=== PATIENT | female | born 1935 | race Caucasian/White ===

== ENCOUNTER 2021-06-29 12:09 | Inpatient (IN) | payer MEDICARE, BC ==
[2021-06-29 13:02] LABS: #Monocytes 0.3 10x3/uL (0.0-1.1); #Neutrophils 6.2 10x3/uL (1.5-8.4); %Basophils 0.1 % (0.0-2.0); %Lymphocytes 17.1 % (18.0-47.0); %Monocytes 4.3 % (0.0-10.0); %Neutrophils 77.5 % (40.0-75.0); Hemoglobin 9.9 g/dL (12.0-15.5); Mean Corpuscular Hemoglobin 31.7 pg (27.0-33.0); Mean Corpuscular Volume 90.7 fl (81.6-98.3); Mean Platelet Volume 11.5 fl (7.4-10.4); Platelet Count 203 10x3/uL (150-450); RBC Distribution Width 12.1 % (11.5-14.5); Red Blood Cell (RBC) Count 3.12 10x6/uL (3.90-5.03); White Blood Cell (WBC) Count 7.9 10x3/uL (3.5-10.5)
[2021-06-29 13:16] LABS: ALT (SGPT) 8 U/L (8-55); AST (SGOT) 16 U/L (5-34); Albumin 4.1 g/dL (3.4-4.8); Alkaline Phosphatase 47 U/L (40-110); Anion Gap 19 mmol/L (10-20); BUN (Urea Nitrogen) 52 mg/dL (9.8-20.1); Bilirubin, Total 0.8 mg/dL (0.2-1.2); Calc. Creatinine Clearance 0 mL/min (70-130); Calcium 9.3 mg/dL (7.8-10.44); Carbon Dioxide 22 mmol/L (23-31); Chloride 103 mmol/L (98-107); Globulin 2.6 g/dL (2.4-3.5); Glucose 150 mg/dL (83-110); Magnesium 1.9 mg/dL (1.6-2.6); Potassium 4.3 mmol/L (3.5-5.1); Protein, Total 6.7 g/dL (5.8-8.1); Sodium 140 mmol/L (136-145)
[2021-06-29 14:24] LABS: Bilirubin Neg (Negative); Blood, Urine Negative (Negative); Clarity Clear (Clear); Glucose, Urine (Dipstick) Normal (Negative); Ketone, Urine Negative (Negative); Leukocyte Negative (Negative); Nitrite Negative (Negative); Protein, Urine (Dipstick) Negative (Neg-Trace); Urobilinogen Normal mg/dL (Less than 2)
[2021-06-29] MEDS ORDERED: Pantoprazole 40 MG VIAL ONE (14:36)
[2021-06-29] MEDS ORDERED: Acetaminophen 650 MG Suppository PR PRN (15:59)
[2021-06-29] MEDS ORDERED: Ondansetron PF 4 MG/2 ML Vial IVP PRN (15:59)
[2021-06-29] MEDS ORDERED: Ondansetron ODT 4 MG TAB PO PRN (15:59)
[2021-06-29] MEDS ORDERED: Acetaminophen 325 MG TAB PO PRN (15:59)
[2021-06-29] MEDS ORDERED: Sodium Chloride 0.9% 1,000 ML IV SCH (16:00)
[2021-06-29 16:16] LABS: Hemoglobin 8.4 g/dL (12.0-15.5)
[2021-06-29 19:26] VITALS: BMI 28.9
[2021-06-29] MEDS: Pantoprazole 40 MG VIAL IVP SCH (21:03)
[2021-06-29 21:54] LABS: Hemoglobin 7.6 g/dL (12.0-15.5)
[2021-06-29 22:23] LABS: SARS-CoV-2 NAA Rapid Test Not Detected (NotDetected)
[2021-06-30] MEDS: Sodium Chloride 0.9% 1,000 ML IV SCH ×2 (05:02→17:52)
[2021-06-30 05:19] LABS: #Monocytes 1.4 10x3/uL (0.0-1.1); #Neutrophils 4.6 10x3/uL (1.5-8.4); %Basophils 0.2 % (0.0-2.0); %Eosinophils 0.1 % (0.0-6.0); %Lymphocytes 30.7 % (18.0-47.0); %Monocytes 15.9 % (0.0-10.0); %Neutrophils 52.3 % (40.0-75.0); Mean Corpuscular Hemoglobin 31.3 pg (27.0-33.0); Mean Corpuscular Volume 94.6 fl (81.6-98.3); Mean Platelet Volume 11.8 fl (7.4-10.4); Platelet Count 160 10x3/uL (150-450); RBC Distribution Width 12.4 % (11.5-14.5); Red Blood Cell (RBC) Count 2.24 10x6/uL (3.90-5.03); White Blood Cell (WBC) Count 8.7 10x3/uL (3.5-10.5)
[2021-06-30 05:27] LABS: Manual Diff?? YES
[2021-06-30 05:44] LABS: Glucose 91 mg/dL (83-110)
[2021-06-30 05:46] LABS: Anion Gap 16 mmol/L (10-20); BUN (Urea Nitrogen) 26 mg/dL (9.8-20.1); Calc. Creatinine Clearance 61 mL/min (70-130); Calcium 7.9 mg/dL (7.8-10.44); Carbon Dioxide 22 mmol/L (23-31); Chloride 109 mmol/L (98-107); Potassium 3.4 mmol/L (3.5-5.1); Sodium 144 mmol/L (136-145)
[2021-06-30 06:25] LABS: Band 9 % (5-11); Lymphocytes 30 % (21-51); Monocytes 13 % (0-10); Neutrophil 48 % (42-75); Platelet Morphology Comment Appears Adequate
[2021-06-30] MEDS: Pantoprazole 40 MG VIAL IVP SCH ×2 (08:20→20:45)
[2021-06-30 10:22] LABS: Hemoglobin 7.6 g/dL (12.0-15.5)
[2021-06-30] MEDS ORDERED: PROPOFOL 20 ML ONE (10:50)
[2021-06-30 16:03] LABS: Hemoglobin 8.3 g/dL (12.0-15.5)
[2021-06-30 22:22] LABS: Hemoglobin 8.1 g/dL (12.0-15.5)
[2021-07-01 05:01] LABS: Anion Gap 13 mmol/L (10-20); BUN (Urea Nitrogen) 10 mg/dL (9.8-20.1); Calc. Creatinine Clearance 63 mL/min (70-130); Calcium 8.1 mg/dL (7.8-10.44); Carbon Dioxide 25 mmol/L (23-31); Chloride 108 mmol/L (98-107); Glucose 113 mg/dL (83-110); Potassium 3.1 mmol/L (3.5-5.1); Sodium 143 mmol/L (136-145)
[2021-07-01 05:27] LABS: Mean Corpuscular Hemoglobin 31.3 pg (27.0-33.0); Mean Corpuscular Volume 89.2 fl (81.6-98.3); Mean Platelet Volume 11.6 fl (7.4-10.4); Platelet Count 173 10x3/uL (150-450); RBC Distribution Width 14.6 % (11.5-14.5); Red Blood Cell (RBC) Count 2.88 10x6/uL (3.90-5.03); White Blood Cell (WBC) Count 7.9 10x3/uL (3.5-10.5)
[2021-07-01 06:14] LABS: Anisocytosis SLIGHT = 6-15 cells (100X) (0-5/hpf); MDiff Complete? YES; Platelet Morphology Comment Appears Adequate
[2021-07-01 06:16] LABS: Lymphocytes 16 % (21-51); Monocytes 18 % (0-10); Neutrophil 64 % (42-75); Reactive Lymphocytes 2 % (0-10)
[2021-07-01] MEDS: Sodium Chloride 0.9% 1,000 ML IV SCH (06:17)
[2021-07-01] MEDS ORDERED: Electrolyte Replacement Protocol 1 EACH FS SCH (07:30)
[2021-07-01] MEDS: Pantoprazole 40 MG VIAL IVP SCH (08:20)
[2021-07-01 08:49] VITALS: TEMP 97.6
[2021-07-01] MEDS ORDERED: Ramipril 5 MG CAP PO SCH (09:00)
[2021-07-01] MEDS ORDERED: Metoprolol Tartrate 50 MG TAB PO SCH (09:00)
[2021-07-01] MEDS ORDERED: Potassium Chloride 20 MEQ TAB PO SCH (12:00)
[2021-07-01] MEDS ORDERED: Magnesium 2 GM/50 ML(in water) 2 GM in Premix Bag 1 BAG IVPB SCH (12:00)
[2021-07-01 13:33] VITALS: BP 139/62
== END 2021-07-01 14:18 | disposition home or self-care (01) | DRG 378 ==
LOC: CSHERS 12:09 → CSHTELE 18:08
PROVIDERS: ADMIT Internal Medicine; ATTEND Internal Medicine
PROC: 0DB68ZX Excision of Stomach, Via Natural or Artificial Opening Endoscopic, Diagnostic (ICD-10-PCS; principal; 2021-06-30)
PROC: 30233N1 Transfusion of Nonautologous Red Blood Cells into Peripheral Vein, Percutaneous Approach (ICD-10-PCS; 2021-06-30)
DX: K25.4 Chronic or unspecified gastric ulcer with hemorrhage (principal); D62 Acute posthemorrhagic anemia; I10 Essential (primary) hypertension; E78.5 Hyperlipidemia, unspecified; F41.9 Anxiety disorder, unspecified; F32.A Depression, unspecified; E87.6 Hypokalemia; Z20.822 Contact with and (suspected) exposure to COVID-19; Z79.899 Other long term (current) drug therapy; Z90.49 Acquired absence of other specified parts of digestive tract; Z88.8 Allergy status to other drugs, medicaments and biological substances; Z72.89 Other problems related to lifestyle
CPT/HCPCS: 36415; 36416; 36430; 80048; 80053; 81003; 82274; 83735; 84484; 85025; 86850; 86900; 86901; 87086; 88305; 93005; 94760; 96361; 96374; C9113; J2704; J3475; J7050; P9016; U0002